=== PATIENT | female | born 1955 | race Caucasian/White ===

== ENCOUNTER → 2020-06-12 | Outpatient (CLI) | payer OTHER | LOC: LAB.O 11:20 | PROVIDERS: ATTEND Registered Nurse General Practice | DX: N30.01 Acute cystitis with hematuria (principal) ==

== ENCOUNTER 2020-08-28 19:43 | Emergency (ER) | payer SELFPAY ==
[2020-08-28] MEDS ORDERED: SODIUM CHLORIDE 0.9% (FLUSH) 10 ML SYG IV PRN (19:49)
--- NOTE | 2020-08-28 19:49 | ED.PDOC ---
History of Present Illness - General Time Seen by Provider: 08/28/20 19:49 Source: patient - History of Present Illness Initial Comments: 64-year-old female with past medical history of hypertension and diabetes who presents with chief complaint of chest pain. While at rest at 5 PM today while watching the kids play outside. Located to the center of her chest without radiation, describes as a squeezing sensation, currently 4/10 severity but reports frequent spontaneous worsening to 8/10 severity which lasted for about 5 to 10 seconds before resolving spontaneously, seems to worsen with activity/exertion, also much worse with deep breathing and palpation of the chest wall, took 2 full dose aspirin at home prior to arrival with little relief. Also reports mild dyspnea. Denies cough, fever, chills, sore throat, abdominal pain, nausea/vomiting, urinary symptoms. Reports some mild swelling of the legs which is usual for her. Denies any history of ID or cardiac stents. PCP is Marco Osorio. Allergies/Adverse Reactions: Allergies NO KNOWN ALLERGY Allergy (Verified 08/28/20 20:02) Home Medications: Ambulatory Orders Citalopram Hydrobromide [Celexa] 08/28/20 Review of Systems - Review of Systems Review of Systems: 08/28/20 20:30 as per HPI All other Systems: Reviewed and Negative Family Medical History - Family History Mother Family History: Unknown Physical Exam - Physical Exam General Appearance: Alert, Obese, Other - appears uncomfortable due to pain Eye Exam: bilateral normal Ears, Nose, Throat: hearing grossly normal, normal ENT inspection, normal pharynx Neck: non-tender, full range of motion, supple, normal inspection Respiratory: lungs clear, normal breath sounds, no respiratory distress, no accessory muscle use Cardiovascular/Chest: normal peripheral pulses, regular rate, rhythm, no edema, no gallop, no JVD, no murmur, other - Marked marked tenderness to palpation to anterior chest wall which reproduces the patient's chest pain Peripheral Pulses: radial,right: 2+, radial,left: 2+ Gastrointestinal/Abdominal: non tender, soft, no organomegaly Back Exam: normal inspection, no CVA tenderness, no vertebral tenderness Extremity: normal range of motion, non-tender, normal inspection, no pedal edema, no calf tenderness, normal capillary refill 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 Consider also ACS, CHF, pneumonia, GERD, anxiety, other -Patient stable, blood pressure slightly elevated, vitals otherwise normal -obtain cardiac work-up, trial of nitroglycerin as needed, if ineffective will give morphine as needed 08/28/20 22:46 -Patient remained stable. Troponin x2 in the ED after 2 hours. Repeat EKG is unchanged. Lab work otherwise reveals mild leukocytosis but otherwise unremarkable. CT imaging of the chest was obtained given concern for possible right perihilar infiltrate versus mass. However, CT imaging of the chest reveals no acute processes including infiltrate, masses, lymphadenopathy. Suspect chest x-ray findings were artifact in nature. -Patient reports pain is markedly improved but not at 0/10 just yet. I advised that we admit her to the hospital for further observation but she declines. Therefore, I asked that we at least get her pain to 0 before going home and she is in agreement. We will give another dose of morphine 4 mg IV. I advised that she have a urgent further outpatient work-up which may include cardiac stress testing, referral to cardiology, etc. She states she is going to follow-up with Marco Osorio tomorrow. 08/28/20 23:20 -Patient reports pain is now 0/10 severity. She still declines to be admitted. Will discharge home in stable condition. Strongly advised that she follow-up closely with her PCP for further outpatient evaluation and she is in agreement. Return warnings discussed at length. Kasi Naqvi MD Billing #[id number] 08/28/20 19:49 IV Care:Saline Lock per Protoc QSHIFT Telemetry .ONCE Sodium Chloride 0.9% (Flush) [Saline Flush Syringe] 10 ml IV PRN PRN 08/28/20 20:00 EKG STAT 08/28/20 20:44 Hold Metformin x 48Hrs [id number] 08/28/20 21:45 EKG STAT 08/29/20 09:00 Pulse Ox Daily Laboratory Results - last 24 hr 08/28/20 08/28/20 08/28/20 19:55 19:55 19:55 WBC 11.2 H RBC 5.06 Hgb 14.2 Hct 41.7 MCV 82.6 MCH 28.1 MCHC 34.1 RDW 14.2 Plt Count 326 MPV 8.7 Absolute Neuts (auto) 5.80 Absolute Lymphs (auto) 3.60 H Absolute Monos (auto) 1.10 H Absolute Eos (auto) 0.50 H Absolute Basos (auto) 0.10 Neutrophils % 52.2 Lymphocytes % 32.3 Monocytes % 10.1 H Eosinophils % 4.2 Basophils % 1.2 D-Dimer, Quantitative 319.0 Sodium 136 Potassium 3.6 Chloride 96 L Carbon Dioxide 27 Anion Gap 16.6 BUN 15 Creatinine 0.66 BUN/Creatinine Ratio 22.7 H Random Glucose 97 Serum Osmolality 272.7 L Calcium 10.2 Total Bilirubin 0.4 AST 23 ALT 21 Alkaline Phosphatase 72 Troponin I B-Natriuretic Peptide < 15.0 Serum Total Protein 8.2 Albumin 3.9 Globulin 4.3 H Albumin/Globulin Ratio 0.9 L 08/28/20 08/28/20 19:55 21:38 WBC RBC Hgb Hct MCV MCH MCHC RDW Plt Count MPV Absolute Neuts (auto) Absolute Lymphs (auto) Absolute Monos (auto) Absolute Eos (auto) Absolute Basos (auto) Neutrophils % Lymphocytes % Monocytes % Eosinophils % Basophils % D-Dimer, Quantitative Sodium Potassium Chloride Carbon Dioxide Anion Gap BUN Creatinine BUN/Creatinine Ratio Random Glucose Serum Osmolality Calcium Total Bilirubin AST ALT Alkaline Phosphatase Troponin I < 0.02 < 0.02 B-Natriuretic Peptide Serum Total Protein Albumin Globulin Albumin/Globulin Ratio - EKG/XRAY/CT EKG: Sinus - Normal sinus rhythm, heart rate 85, no ST elevations noted, no Q waves noted, axis normal, intervals normal, no prior EKG for comparison. XRAY: chest - Per my read appears to be possibly right perihilar infiltrate versus mass versus lymphadenopathy present, otherwise no acute processes noted Departure - Departure Clinical Impression: Musculoskeletal chest pain Time of Disposition: 23:18 Disposition: Discharge to Home or Self Care Condition: Good Instructions: Chest Pain (DC), Costochondritis (DC) Diet: low fat, low cholesterol, low salt diet Activity: increase activity as tolerated Referrals: FABY DAVIES NP [Primary Care Provider] - 1-2 Weeks Home Medications: Ambulatory Orders Citalopram Hydrobromide [Celexa] 08/28/20 Additional Instructions: Remain well-hydrated and gradually advance your diet and activity level as tolerated. May continue to take [id number] analgesics as needed for pain such as Tylenol and ibuprofen. Return to the ED if your symptoms worsen or you develop other concerning symptoms such as shortness of breath, cough with fever, change in character and worsening pain, etc. Follow-up closely with your primary care physician is recommended in the next 5 to 7 days for repeat evaluation or sooner as needed. You may benefit from further outpatient evaluation which may include cardiac stress testing, cardiology referral etc.
[2020-08-28 20:02] VITALS: TEMP 97.5
--- NOTE | 2020-08-28 20:26 | RAD ---
EXAM: Chest,1 View CLINICAL INDICATION: 64-year-old female with chest pain. TECHNIQUE: Single view, AP portable chest was obtained. COMPARISON: 08/25/2007. FINDINGS: Unremarkable cardiac and mediastinal silhouette. Heart size is normal. Nonspecific mild prominence of the RIGHT greater than LEFT hilar regions may be secondary to vascular congestion, lymphadenopathy and cannot exclude the possibility of underlying hilar mass. Low lung volumes grossly clear without focal opacity, pneumothorax or pleural effusions. The visualized bones are within normal limits. IMPRESSION: 1. No acute cardiopulmonary abnormalities. 2. Nonspecific mild prominence of the RIGHT greater than LEFT hilar regions may be secondary to vascular congestion, lymphadenopathy and cannot exclude the possibility of underlying hilar mass. Repeat upright PA and lateral radiography or CT chest may be considered for further assessment. Electronically signed by: Gina Rogers MD 08/28/2020 8:24 PM CDT
[2020-08-28] MEDS ORDERED: MORPHINE SULFATE INJ 10 MG/ML VIAL IV ONE ×2 (20:28→22:45)
--- NOTE | 2020-08-28 21:34 | CT ---
CT chest with contrast on 08/28/2020 CLINICAL INDICATION: Chest pain, follow-up abnormal chest x-ray with right hilar prominence TECHNIQUE: Multiple axial images are obtained throughout the chest following the administration of IV contrast. This exam was performed according to our departmental dose-optimization program, which includes automated exposure control, adjustment of the mA and/or kV according to patient size and/or use of iterative reconstruction technique. Total DLP is 728.22 mGy*cm. COMPARISON: Chest x-ray from 08/28/2010 CT abdomen and lower chest from 11/14/2009 FINDINGS: There is no thoracic aortic aneurysm or dissection. There is no pleural or pericardial effusion. There is no thoracic adenopathy. No right hilar mass or adenopathy is noted. There is minimal bilateral dependent atelectasis. The lungs are otherwise clear. Limited visualized upper abdomen is unremarkable. Degenerative changes are noted in the spine. IMPRESSION: No acute abnormality. Electronically signed by: Nelson Carranza 08/28/2020 9:32 PM CDT
[2020-08-28 23:02] VITALS: BP 145/65; O2SAT 92
== END 2020-08-28 23:25 | disposition home or self-care (01) ==
LOC: ER 19:43
DX: R07.89 Other chest pain (principal); R06.00 Dyspnea, unspecified; I10 Essential (primary) hypertension; Z79.899 Other long term (current) drug therapy
CPT/HCPCS: 36415; 71045; 71260; 80053; 83880; 84484; 85025; 85379; 93005; J2270